=== PATIENT | female | born 1940 | race Caucasian/White ===

== ENCOUNTER 2020-09-07 09:20 | Outpatient (CLI) | payer MEDICARE, SELFPAY ==
--- NOTE | 2020-09-07 09:26 | ECG_ITS ---
Measurements Intervals [place] Rate: 78 P: 22 WA: 159 QRS: 4 QRSD: 90 T: 43 QT: 372 QTc: 426 Interpretive Statements SINUS RHYTHM VOLTAGE CRITERIA FOR LVH BORDERLINE ECG Electronically Signed On 09-07-2020 9:49:01 [employer]TERNATIVE ENER[employer] TECHNICIAN by Willem Camarillo D.O.
[2020-09-07 10:06] LABS: Hematocrit 41.2 % (37.0-47.0); Hemoglobin 13.7 g/dL (12.0-15.0)
== END 2020-09-07 09:21 | disposition home or self-care (01) ==
LOC: ANHSURGERY 09:25
PROVIDERS: PCP Internal Medicine; Visit Provider Obstetrics & Gynecology
DX: N95.0 Postmenopausal bleeding (principal); I10 Essential (primary) hypertension; Z01.818 Encounter for other preprocedural examination
CPT/HCPCS: 36415; 85014; 85018; 93005

== ENCOUNTER 2020-09-09 00:40 | Outpatient (CLI) | payer MEDICARE, SELFPAY ==
[2020-09-09 19:17] LABS: SARS-CoV-2 RNA PCR Negative
== END 2020-09-09 00:41 | disposition home or self-care (01) ==
LOC: ANHCOVIDDT 00:40
PROVIDERS: Visit Provider Obstetrics & Gynecology
DX: Z01.812 Encounter for preprocedural laboratory examination (principal); Z20.822 Contact with and (suspected) exposure to COVID-19
CPT/HCPCS: C9803; U0003; U0005

== ENCOUNTER 2020-09-12 01:29 | Day surgery (SDC) | payer MEDICARE, SELFPAY ==
[2020-09-05 15:41] VITALS: BMI 32.9
--- NOTE | 2020-09-07 08:32 | PM.IMHP ---
H&P: HPI History of Present Illness Date/Time: 09/07/20 08:32 Chief Complaint: pmb Narrative: Kimberlyn Osborne is a 79 year old female who is admitted for hysteroscopy dilatation curettage secondary to thickened endometrium. She removed her sound which showed fluid in the uterine cavity. She was offered hysteroscopy dilatation curettage. Risks and benefits were reviewed including but not exclusive aspiration pneumonia, bleeding, transfusion, perforation injury to bowel, bladder, ureters, or other internal organs with need for open laparotomy. She received the [employer] handout entitled hysteroscopy as well as dilatation curettage. She had all questions answered. She asked to proceed Review of Systems Review of Systems: All systems reviewed & are unremarkable except as noted in HPI and below PMFSH Social History Social History Smoking status: Never smoker Spiritual care concerns: No Meds Home Medications and Allergies Home Medications Medication Instructions Recorded Confirmed Type amlodipine 10 mg PO QPM 09/05/20 09/05/20 History ascorbic acid (vitamin C) 1,000 mg PO DAILY 09/05/20 09/05/20 History cholecalciferol (vitamin D3) 50 mcg PO DAILY 09/05/20 09/05/20 History flaxseed 1,000 mg PO DAILY 09/05/20 09/05/20 History irbesartan 150 mg PO QAM 09/05/20 09/05/20 History red yeast rice 600 mg PO DAILY 09/05/20 09/05/20 History vit C,W-We-likdt-lutein-zeaxan 1 tablet PO BID 09/05/20 09/05/20 History [PreserVision AREDS-2] vitamin B complex [B Complex] 1 cap PO DAILY 09/05/20 09/05/20 History Allergies Allergy/AdvReac Type Severity Reaction Status Date / Time meperidine [From Demerol] Allergy Unknown Nausea and Verified 09/05/20 15:12 Vomiting AND SEVERE ROBERSON morphine Allergy Unknown Anxiety Verified 09/05/20 15:12 Exam Const: General: no acute distress Eyes: General: appearance normal, both eyes and all related structures Neck: Neck: supple and no JVD Thyroid: thyroid normal Resp: Effort & Inspection: normal respiratory effort Auscultation: clear to auscultation bilaterally Cardio: Rate: regular rate Rhythm: regular rhythm GI: Inspection: non-distended GI Palp: Yes Soft to palpation, No Tenderness to palpation present (GI) and No Guarding due to palpation present (GI) Auscultation: normal bowel sounds : General: Yes bladder normal to inspection External Female Exam: normal external appearance Speculum Exam - Vagina: normal appearance of the vagina Speculum Exam - Cervix: normal appearance of the cervix Bimanual exam- vagina & uterus: uterine size normal Skin: General skin exam: no rashes or lesions noted Extrem: General: normal to inspection and no edema Psych: Mental Status: mental status grossly normal Affect: normal affect Assessment and Plan Additional Plan impression: Thickened endometrium in a postmenopausal female Plan: Hysteroscopy/dilatation and curettage
--- NOTE | 2020-09-12 05:47 | WPDHPUPDATE1 ---
History and Physical Update Update Date/Time: 09/12/20 05:47 History and Physical has been reviewed, including an updated exam of the patient. There are NO changes in the patient's condition. Risks, benefits, and alternatives have been discussed and questions answered. Patient agrees to proceed with procedure.
[2020-09-12 07:40] VITALS: BMI 32.9
--- NOTE | 2020-09-12 07:42 | WPDANESEPPF ---
Anes - Initial Pre Proc Eval Procedure: Operation Date: 09/12/20 08:30 Proposed Procedures p Hysteroscopy Dilation and Curettage - Carmine Corado MD Date/Time: 09/12/20 07:42 Surgeon: Carmine Corado MD Pre Op Diagnosis: Post Menopausal Bleeding Patient Data Age: 79 Gender: F Height: 5 ft 7 in Weight: 95.4 kg Allergies Allergy/AdvReac Type Severity Reaction Status Date / Time meperidine [From Demerol] AdvReac Intermediate Nausea and Verified 09/12/20 07:36 Vomiting AND SEVERE ROBERSON morphine AdvReac Unknown Anxiety Verified 09/12/20 07:36 Home Medications Medication Instructions Recorded Confirmed Type amlodipine 10 mg PO QPM 09/05/20 09/12/20 History ascorbic acid (vitamin C) 1,000 mg PO DAILY 09/05/20 09/12/20 History cholecalciferol (vitamin D3) 50 mcg PO DAILY 09/05/20 09/12/20 History flaxseed 1,000 mg PO DAILY 09/05/20 09/12/20 History irbesartan 150 mg PO QAM 09/05/20 09/12/20 History red yeast rice 600 mg PO DAILY 09/05/20 09/12/20 History vit C,C-Po-tledm-lutein-zeaxan 1 tablet PO BID 09/05/20 09/12/20 History [PreserVision AREDS-2] vitamin B complex [B Complex] 1 cap PO DAILY 09/05/20 09/12/20 History Patient hx anesthesia problems: none Family hx anesthesia problems: none PMFSH Past Medical History Medical History DVT (deep venous thrombosis) Hypertension Social History Social History Smoking status: Never smoker Living arrangements: with family Spiritual care concerns: No Anes - Eval Final PreProcedure Day of Procedure 09/12/20 07:42 Patient weight: obese Heart: regular rate and rhythm Lungs: clear to auscultation Airway: Mallampati scale class III Neurological: other (alert) Last oral intake: >/= 8 hours ASA classification: III Emergent: no Anesthetic plan: proceed Anesthesia type and monitoring: general GIVS and standard monitoring Informed Consent: The patient's anesthetic plan and its attendant risks and benefits were discussed with the patient/family/POA. Questions were solicited and answers provided to the satisfaction of the patient/family/POA.
[2020-09-12] MEDS: LACTATED RINGERS 1,000 ML 30 ML IV CONT (07:53)
[2020-09-12] MEDS: ACETAMINOPHEN 500 MG TABLET 1000 MG PO (07:54)
[2020-09-12 07:58] VITALS: BP 146/69; PULSE 93; RESP 18; TEMP 36.9; O2SAT 100
[2020-09-12] MEDS: LIDOCAINE HCL 1% LOCAL INJ 20 ML VIAL 10 ML INFILTRATE (08:58)
--- NOTE | 2020-09-12 09:02 | PM.PROC ---
Procedure Note - Detailed Date of procedure: 09/12/20 Pre-op diagnosis: Post Menopausal Bleeding Surgeon: Carmine Corado MD Postop diagnosis: Postmenopausal bleeding Procedure: Hysteroscopy/dilatation and curettage Anesthesia: IV sedation and local Findings: Small amount of mucus explaining the fluid seen on ultrasound. Benign atrophic appearing endometrium and normal-appearing tubal ostia bilaterally. Complications: None EBL: 5cc Description of procedure: The patient was prepped and draped in the normal sterile fashion placed in the dorsal lithotomy position. Under excellent IV sedation weighted speculum was placed in posterior fornix of vagina. Anterior lip of the cervix was grasped with a single-tooth tenaculum and 2.5cc of 1% xylocaine anesthesia placed at 2, 4, 6, 10:00 a.m. of the cervix. The uterus sounded to 8cm. Serial dilatation with fragmented dilators performed which allowed for discharge of a mucoid discharge. The 5mm trocar advanced in the uterus. Benign atrophic endometrial lining was noted. The uterus was scraped over the entire 360? removing virtually no tissue as expected for a patient of this age. When a good grating sound was heard the instruments removed. The patient was awakened. All sponge, needle, instrument counts were correct. There were no immediate complications
[2020-09-12 09:10] VITALS: BP 107/51; PULSE 80; RESP 14; O2SAT 97
[2020-09-12 09:45] VITALS: BP 108/75; PULSE 84; RESP 16
== END 2020-09-12 10:35 | disposition home or self-care (01) ==
PROVIDERS: Visit Provider Obstetrics & Gynecology
PROC: 0U5B8ZZ Destruction of Endometrium, Via Natural or Artificial Opening Endoscopic (ICD-10-PCS; CPT 58563; principal; 2020-09-12 08:30)
DX: N95.0 Postmenopausal bleeding (principal); N85.8 Other specified noninflammatory disorders of uterus; I10 Essential (primary) hypertension; Z86.718 Personal history of other venous thrombosis and embolism; E66.9 Obesity, unspecified; Z68.32 Body mass index [BMI] 32.0-32.9, adult
CPT/HCPCS: 58558; 88300; 88305; A9270; J2704; J3010; J7030; J7120

== ENCOUNTER 2021-12-13 09:17 | Outpatient (CLI) | payer MEDICARE, SELFPAY ==
--- NOTE | ~2021-12-13 | MM_ITS ---
EXAMINATION: MM screening rod[facility] BI w chaim HISTORY: Screening mammogram TECHNIQUE: Craniocaudal and mediolateral oblique 3-D tomosynthesis images were obtained and synthetic 2-D images were generated. CAD analysis was submitted and interpreted. COMPARISON: No prior mammogram is available for comparison at this institution. BREAST PARENCHYMAL COMPOSITION: There are scattered areas of fibroglandular density. FINDINGS: 3.3 x 7 mm mass is suggested in the lower mid right breast. Diagnostic right mammogram and right breast ultrasound examination are recommended. Otherwise no suspicious mass, architectural distortion, malignant calcification, skin thickening or r etraction of either breast is noted. IMPRESSION: 1. Right breast mass is suggested. 2. Diagnostic right mammogram and right breast ultrasound are recommended. BI-RADS Category 0: Incomplete: Needs additional imaging evaluation. Reviewed, dictated and finalized at location A.
== END 2021-12-13 09:18 | disposition home or self-care (01) ==
DX: Z12.31 Encounter for screening mammogram for malignant neoplasm of breast (principal)
CPT/HCPCS: 77063; 77067

== ENCOUNTER 2023-02-15 07:51 | Outpatient (CLI) | payer MEDICARE, SELFPAY ==
--- NOTE | 2023-02-15 08:13 | ECG_ITS ---
Measurements Intervals [place] Rate: 56 P: 24 DC: 158 QRS: 5 QRSD: 94 T: 28 QT: 439 QTc: 424 Interpretive Statements SINUS BRADYCARDIA LEFT VENTRICULAR HYPERTROPHY AND ST-T CHANGE BASELINE ARTIFACT- I, II, III, AVR, AVL, AVF BORDERLINE ECG COMPARED TO ECG 09/07/2020 10:07:58 SINUS BRADYCARDIA NOW PRESENT Electronically Signed On 02-15-2023 8:40:25 CDT by Willem Camarillo D.O.
== END 2023-02-15 07:52 | disposition home or self-care (01) ==
PROVIDERS: Visit Provider Urology
DX: I10 Essential (primary) hypertension (principal); Z01.818 Encounter for other preprocedural examination; R94.31 Abnormal electrocardiogram [ECG] [EKG]
CPT/HCPCS: 93005